=== PATIENT | male | born 1985 | race Caucasian/White ===

== ENCOUNTER 2022-11-13 10:09 | Emergency (ER) | payer SELFPAY ==
--- OUTSIDE RECORDS SUMMARY | 2022-11-13 10:11 | XMS REPORT | Continuity of Care Document ---
:1985 Author Organization [facility] t Address [address] [place] [address] Care Team Providers Name Role Phone SAEED MARY Primary Care Physician Unavailable RADIOLOGY Attending Clinician Unavailable Radiology Attending Clinician Unavailable SAEED MARY Admitting Clinician Unavailable Problems This patient has no known problems. Allergies, Adverse Reactions, Alerts Allergy Allergy Status Severity Reaction(s) Onset Inactive Treating Comm ents Source Name Type Date Date Clinician NO KNOWN Drug Active Univers ALLERGIE Class ity of [facility] Social History Social Habit Start Date Stop Date Quantity Comments Source Sex Assigned At Uni versity [facility] Smoking Status Start Date Stop Date Source Unknown if ever smoked [facility] Medications This patient has no known medications. Procedures Procedure Date / Time Performed Performing Clinician Sour e US HEAD NECK 2020-04-12 13:58:01 Requisition, Paper [facility] Encounters Start End Encounter Admission Attending Care Care Encounter Source Date/Time Date/Time Type Type Clinicians Facility Department ID 2022-06-28 2022-06-28 Outpatient R [facility] [id number] -[id number] Univers 09:00[facility]00 09[facility]00[facility] [id number] 2022-06-28 2022-06-28 Outpatient R [facility] [id number] [facility]:00[facility] 2020-04-12 2020-04-12 Outpatient R RADIOLOGY [facility] [id number] Univers 07:57:38 [facility]59[facility] 2020-04-12 2020-04-12 Hospital Radiology [facility] [id number] Univers 07:57:00 23:59:00 [facility]counter [place] [id number] [id number] [place] [id number] [facility] [address] Results This patient has no known results.
--- NOTE | 2022-11-13 12:49 | RAD REPORT ---
EXAM DESCRIPTION: RAD - Lumbar Spine 3 Views - 11/13/2022 12:28 pm CLINICAL HISTORY: PAIN Radiculopathy COMPARISON: LUMBAR SPINE 3 VIEWS dated 05/14/2007 FINDINGS: Vertebral body heights appear maintained. No compression fracture noted. Mild disc thinnin g at L4-5 and L5-S1. No spondylolysis or spondylolisthesis. IMPRESSION: Mild lower lumbar spondylosis.
--- NOTE | 2022-11-13 12:51 | RAD REPORT ---
EXAM DESCRIPTION: RAD - Ribs Left - 11/13/2022 12:28 pm CLINICAL HISTORY: left anterior Pain and swelling COMPARISON: Chest Single View dated 01/08/2018 FINDINGS: No displaced rib fracture is seen. No underlying pneumothorax.
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
[2022-11-13 14:21] VITALS: O2SAT 100
[2022-11-13 14:22] VITALS: BP 131/89; TEMP 98.6
--- NOTE | 2022-11-14 12:29 | EKG ---
Test Date: 2022-11-13 Test Time: 10:20:28 Development Technician: BRENT MEASUREMENT RESULTS: Intervals: Rate: 76 AL: 150 QRSD: 72 QT: 394 QTc: 443 [place]: P: 34 AL: 150 QRS: 59 T: 43 INTERPRETIVE STATEMENTS: Normal sinus rhythm Normal ECG Compared to ECG 01/08/2018 15:11:06 Sinus arrhythmia no longer present Electronically Signed On 11-14-22 12:25:41 COUTURE ALTERATIONS DRESSMAKER by Donald Thomas
== END 2022-11-13 13:32 | disposition home or self-care (01) ==
LOC: ER 10:09
DX: S20.212A Contusion of left front wall of thorax, initial encounter (principal); M54.16 Radiculopathy, lumbar region; M47.896 Other spondylosis, lumbar region; Z88.1 Allergy status to other antibiotic agents
CPT/HCPCS: 72100; 93005; 99284

== ENCOUNTER 2023-04-06 23:53 | Emergency (ER) | payer SELFPAY ==
--- OUTSIDE RECORDS SUMMARY | 2023-04-06 23:56 | XMS REPORT | Continuity of Care Document ---
:1985 Author Organization [facility] t Address [address] [facility] [address] [place] [id number] Care Team Providers Name Role Phone SAEED MARY Primary Care Physician Unavailable RADIOLOGY Attending Clinician Unavailable Radiology Attending Clinician Unavailable SAEED MARY Admitting Clinician Unavailable Problems This patient has no known problems. Allergies, Adverse Reactions, Alerts Allergy Allergy Status Severity Reaction(s) Onset Inactive Treating Comm ents Source Name Type Date Date Clinician NO KNOWN Drug Active Univers ALLERGIE Class ity of [facility] Social History Social Habit Start Date Stop Date Quantity Comments [facility] Status Start Date Stop Date Source Unknown if ever smoked [facility] Medications This patient has no known medications. Procedures Procedure Date / Time Performed Performing Clinician Sour e US HEAD NECK 2020-04-12 13:58:01 Requisition, Paper [facility] Encounters Start End Encounter Admission Attending Care Care Encounter Source Date/Time Date/Time Type Type Clinicians Facility Department ID 2022-06-28 2022-06-28 Outpatient R [facility] [id number] Univers 09:00:00 09:00:00 [id number] [facility]-06-28 2022-06-28 Outpatient R [facility] [id number] Univers 09:00:00 09:00:00 [facility] 2020-04-12 2020-04-12 Outpatient R RADIOLOGY [facility] [id number] Univers 07:57:38 23:59:[facility] 2020-04-12 2020-04-12 Hospital Radiology [facility] [id number] Univers 07:57:00 23:59:00 [facility] [place] [id number] [id number] [facility] [address] Results This patient has no known results.
[2023-04-07] MEDS ORDERED: TETANUS & DIPHTHERIA TOX,ADULT 0.5 ML VIAL ONE (02:25)
[2023-04-07] MEDS ORDERED: LIDOCAINE 1% W/EPI 1:100,000 50 ML MDV ONE (02:25)
[2023-04-07] MEDS ORDERED: HYDROCODONE/APAP 7.5/325 MG TAB ONE (02:41)
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
[2023-04-07 03:43] VITALS: TEMP 98.8
[2023-04-07 03:45] VITALS: BP 141/68; O2SAT 97
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
== END 2023-04-07 03:38 | disposition home or self-care (01) ==
LOC: ER 23:53
PROC: 0HQ1XZZ Repair Face Skin, External Approach (ICD-10-PCS; principal; 2023-04-07)
DX: S01.81XA Laceration without foreign body of other part of head, initial encounter (principal); F17.210 Nicotine dependence, cigarettes, uncomplicated; Z23 Encounter for immunization; Z88.1 Allergy status to other antibiotic agents
CPT/HCPCS: 70450; 72125; 90471; 90714; 99284